=== PATIENT | male | born 1995 | race Caucasian/White ===

== ENCOUNTER 2023-09-08 22:08 | Emergency (ER) | payer OTHER ==
--- NOTE | 2023-09-08 22:15 | ED ---
Overdose HPI <Amara Crouch - Last Filed: 09/09/23 01:11> <Jaime Buckley - Last Filed: 09/09/23 06:36> - General Stated Complaint: OVERDOSE Time Seen by Provider: 09/08/23 22:15 - History of Present Illness Initial Comments: 28-year-old male brought to the ER by ambulance. Patient was in police custody he was found to have methamphetamine in his possession he did report he uses methamphetamine and cocaine. Patient was being transported from [facility] for incarceration when he began saying he could not breathe and his chest hurt. Patient was hyperventilating he was found to be tachycardic and was brought to the ER. On arrival patient is tachycardic and agitated will not answer questions. (Amara Crouch) - Related Data Allergies Allergy/AdvReac Type Severity Reaction Status Date / Time Unable to Assess Allergy Verified 09/08/23 22:24 Review of Systems ROS Other: All systems not noted in ROS Statement are negative. <Amara Crouch - Last Filed: 09/09/23 01:11> ROS Other: All systems not noted in ROS Statement are negative. <Jaime Buckley - Last Filed: 09/09/23 06:36> ROS Statement: Those systems with pertinent positive or pertinent negative responses have been documented in the HPI. General Exam Limitations: altered mental status General appearance: alert Head exam: Present: atraumatic Eye exam: Present: PERRL (Pupils 3 mm reactive) ENT exam: Present: mucous membranes dry Neck exam: Present: normal inspection Respiratory exam: Present: other (Tachypnea) Cardiovascular Exam: Present: tachycardia GI/Abdominal exam: Present: soft Rectal exam: Present: deferred Neurological exam: Present: alert, other (Follows commands, moving all extremities does not answer any verbal questions) Psychiatric exam: Present: anxious Skin exam: Present: warm, dry <Amara Crouch - Last Filed: 09/09/23 01:11> Course Vital Signs 09/08/23 09/08/23 09/08/23 22:17 22:20 22:35 Temperature Pulse Rate 140 H Respiratory 42 H 57 H Rate Blood Pressure 145/114 O2 Sat by Pulse 100 Oximetry 0209/08/23 09/09/23 22:54 23:33 00:10 Temperature 98.3 F Pulse Rate 99 87 86 Respiratory 15 15 15 Rate Blood Pressure 128/83 112/92 126/88 O2 Sat by Pulse 100 100 100 Oximetry 09/09/23 09/09/23 09/09/23 00:40 01:10 02:10 Temperature Pulse Rate 92 96 98 Respiratory 16 15 17 Rate Blood Pressure 123/85 129/88 137/98 O2 Sat by Pulse 100 100 100 Oximetry 09/09/23 09/09/23 09/09/23 03:10 05:00 06:00 Temperature Pulse Rate 102 H 98 98 Respiratory 17 16 14 Rate Blood Pressure 152/99 133/95 133/95 O2 Sat by Pulse 100 98 98 Oximetry Medical Decision Making - Lab Data Result diagrams: 09/08/23 22:25 09/08/23 22:25 <Amara Crouch P - Last Filed: 09/09/23 01:11> - Lab Data Result diagrams: 09/08/23 22:25 09/08/23 22:25 <Jaime Buckley D - Last Filed: 09/09/23 06:36> - Medical Decision Making Was pt. sent in by a medical professional or institution (, PA, SQUEEZER OPERATOR, urgent care, hospital, or senior living...) When possible be specific @ -[No] Did you speak to anyone other than the patient for history (EMS, parent, family, police, friend...)? What history was obtained from this source @ -Police, EMS Did you review nursing and triage notes (agree or disagree)? Why? @ -[I reviewed and agree with nursing and triage notes] Were old charts reviewed (outside hosp., previous admission, EMS record, old EKG, old radiological studies, urgent care reports/EKG's, senior living records)? Report findings @ -No old charts available Differential Diagnosis (chest pain, altered mental status, abdominal pain women, abdominal pain men, vaginal bleeding, weakness, fever, dyspnea, syncope, headache, dizziness, GI bleed, back pain, seizure, CVA, palpatations, mental health)? @ -Differential Altered Mental Status: Hypoglycemia, DKA, hypercapnia, ETOH, overdose, CO poisoning, trauma, myxedema coma, HTN encephalopathy, infection, encephalitis, psychosis, intercranial hemorrhage, hepatic encephalopathy, meningitis, CVA, this is not meant to be an all-inclusive list EKG interpreted by me (3pts min.). @ -[As above] X-rays interpreted by me (1pt min.). @ -[None done] CT interpreted by me (1pt min.). @ -[None done] U/S interpreted by me (1pt. min.). @ -[None done] What testing was considered but not performed or refused? (CT, X-rays, U/S, labs)? Why? @ -[None] What meds were considered but not given or refused? Why? @ -[None] Did you discuss the management of the patient with other professionals (professionals i.e. , PA, SQUEEZER OPERATOR, lab, RT, psych nurse, family welfare social work professor, expansion joint builder, teacher, motor equipment commanding officer, major case detective)? Give summary @ -[No] Was smoking cessation discussed for >3mins.? @ -[No] Was critical care preformed (if so, how long)? @ -[No] Were there social determinants of health that impacted care today? How? (Homelessness, low income, unemployed, alcoholism, drug addiction, transportation, low edu. Level, literacy, decrease access to med. care, usp, rehab)? @ -Drug addiction Was there de-escalation of care discussed even if they declined (Discuss DNR or withdrawal of care, Hospice)? DNR status @ -[No] What co-morbidities impacted this encounter? (DM, HTN, Smoking, COPD, CAD, Cancer, CVA, ARF, Chemo, Hep., AIDS, mental health diagnosis, sleep apnea, morbid obesity)? @ -[None] Was patient admitted / discharged? Hospital course, mention meds given and route, prescriptions, significant lab abnormalities, going to OR and other pertinent info. @ -The patient was seen and evaluated, history was obtained from police and EMS. Patient was found to be in possession of methamphetamine admitted to using methamphetamine and cocaine in the past. Patient was initially cooperative but became acutely agitated tachypneic tachycardic flailing around not answering questions. Patient was brought to the ER for evaluation. On arrival patient is tachypneic tachycardic and flailing around. IV access was obtained patient was given 2 mg of IV Ativan. Patient's condition did not improve and he was given an additional 2 mg of IV Ativan. Breathing exercise were discussed with the patient he was able to slow his breathing. Patient then fell asleep, tachycardia resolved. Patient is now resting, he awakes to gentle physical stimulation. He will remain in the ER until mentation improves. Patient was released from police custody however if he remains in the ER they will return at 5 AM to interview him. Patient care was signed out to Dr. Buckley at shift change, plan for patient to be discharged when awake and sober. (Amara Crouch) Patient care signed out to me by previous shift physician, Dr. Crouch at 1 AM. Briefly, patient is a 28-year-old male brought to the emergency department for methamphetamine use. He was treated with benzodiazepines. Patient and stable medical condition obviously he is chemically sedated with benzodiazepines. Plan at signout is to reevaluate patient at approximately 5 AM where he is to be re evaluated by law enforcement. Patient evaluated at 6:36 AM found to be in stable condition. He is awake alert oriented. States he did some drugs. Patient has no complaints at the bedside feels currently at baseline. Patient tolerating oral intake at the bedside. Patient be discharged. (Jaime Buckley) - Lab Data Lab Results 09/08/23 09/08/23 09/08/23 Range/Units 22:22 22:25 22:25 WBC 7.2 (3.8-10.6) k/uL RBC 5.19 (4.30-5.90) m/uL Hgb 15.0 (13.0-17.5) gm/dL Hct 45.8 (39.0-53.0) % MCV 88.1 (80.0-100.0) fL MCH 28.9 (25.0-35.0) pg MCHC 32.8 (31.0-37.0) g/dL RDW 15.9 H (11.5-15.5) % Plt Count 426 (150-450) k/uL MPV 7.2 Neutrophils % 65 % Lymphocytes % 20 % Monocytes % 5 % Eosinophils % 6 % Basophils % 0 % Neutrophils # 4.7 (1.3-7.7) k/uL Lymphocytes # 1.5 (1.0-4.8) k/uL Monocytes # 0.4 (0-1.0) k/uL Eosinophils # 0.5 (0-0.7) k/uL Basophils # 0.0 (0-0.2) k/uL Sodium 140 (137-145) mmol/L Potassium 4.2 (3.5-5.1) mmol/L Chloride 107 (98-107) mmol/L Carbon Dioxide 18 L (22-30) mmol/L Anion Gap 15 mmol/L BUN 11 (9-20) mg/dL Creatinine 0.77 (0.66-1.25) mg/dL Est GFR (CKD-EPI)AfAm >90 (>60 ml/min/1.73 sqM) Est GFR (CKD-EPI)NonAf >90 (>60 ml/min/1.73 sqM) Glucose 96 (74-99) mg/dL POC Glucose (mg/dL) 93 (70-110) mg/dL POC Glu Online Community Manager ID Amadou Meehan Calcium 9.9 (8.4-10.2) mg/dL Total Bilirubin 0.6 (0.2-1.3) mg/dL AST 32 (17-59) U/L ALT 26 (4-49) U/L Alkaline Phosphatase 114 (38-126) U/L Total Protein 7.5 (6.3-8.2) g/dL Albumin 5.1 H (3.5-5.0) g/dL Salicylates <1.0 mg/dL Urine Opiates Screen (NotDetected) Ur Oxycodone Screen (NotDetected) Urine Methadone Screen (NotDetected) Acetaminophen <10.0 ug/mL Ur Barbiturates Screen (NotDetected) U Tricyclic Antidepress (NotDetected) Ur Phencyclidine Scrn (NotDetected) Ur Amphetamines Screen (NotDetected) U Methamphetamines Scrn (NotDetected) U Benzodiazepines Scrn (NotDetected) Urine Cocaine Screen (NotDetected) U Marijuana (THC) Screen (NotDetected) Serum Alcohol <10 mg/dL 09/08/23 Range/Units 23:48 WBC (3.8-10.6) k/uL RBC (4.30-5.90) m/uL Hgb (13.0-17.5) gm/dL Hct (39.0-53.0) % MCV (80.0-100.0) fL MCH (25.0-35.0) pg MCHC (31.0-37.0) g/dL RDW (11.5-15.5) % Plt Count (150-450) k/uL MPV Neutrophils % % Lymphocytes % % Monocytes % % Eosinophils % % Basophils % % Neutrophils # (1.3-7.7) k/uL Lymphocytes # (1.0-4.8) k/uL Monocytes # (0-1.0) k/uL Eosinophils # (0-0.7) k/uL Basophils # (0-0.2) k/uL Sodium (137-145) mmol/L Potassium (3.5-5.1) mmol/L Chloride (98-107) mmol/L Carbon Dioxide (22-30) mmol/L Anion Gap mmol/L BUN (9-20) mg/dL Creatinine (0.66-1.25) mg/dL Est GFR (CKD-EPI)AfAm (>60 ml/min/1.73 sqM) Est GFR (CKD-EPI)NonAf (>60 ml/min/1.73 sqM) Glucose (74-99) mg/dL POC Glucose (mg/dL) (70-110) mg/dL POC Glu Online Community Manager ID Calcium (8.4-10.2) mg/dL Total Bilirubin (0.2-1.3) mg/dL AST (17-59) U/L ALT (4-49) U/L Alkaline Phosphatase (38-126) U/L Total Protein (6.3-8.2) g/dL Albumin (3.5-5.0) g/dL Salicylates mg/dL Urine Opiates Screen Not Detected (NotDetected) Ur Oxycodone Screen Not Detected (NotDetected) Urine Methadone Screen Not Detected (NotDetected) Acetaminophen ug/mL Ur Barbiturates Screen Not Detected (NotDetected) U Tricyclic Antidepress Not Detected (NotDetected) Ur Phencyclidine Scrn Not Detected (NotDetected) Ur Amphetamines Screen Detected H (NotDetected) U Methamphetamines Scrn Detected H (NotDetected) U Benzodiazepines Scrn Detected H (NotDetected) Urine Cocaine Screen Detected H (NotDetected) U Marijuana (THC) Screen Detected H (NotDetected) Serum Alcohol mg/dL Disposition Is patient prescribed a controlled substance at d/c from ED?: No <Amara Crouch P - Last Filed: 09/09/23 01:11> Is patient prescribed a controlled substance at d/c from ED?: No Time of Disposition: 06:36 <Jaime Buckley - Last Filed: 09/09/23 06:36> Clinical Impression: Substance abuse, Methamphetamine intoxication Disposition: HOME SELF-CARE Condition: Stable Instructions (If sedation given, give patient instructions): Adult Overdose ( ED) Referrals: None,Stated [Primary Care Provider] - 1-2 days
[2023-09-08 22:23] LABS: Glucose,Whole Blood 93 mg/dL (70-110)
[2023-09-08] MEDS: LORazepam 2 MG/ML INJ IV STA ×2 (22:25→22:34)
[2023-09-08 22:36] LABS: Basophils % (A) 0 %; Eosinophils # (A) 0.5 k/uL (0-0.7); Eosinophils % (A) 6 %; HCT 45.8 % (39.0-53.0); Lymphocytes # (A) 1.5 k/uL (1.0-4.8); Lymphocytes % (A) 20 %; MCH 28.9 pg (25.0-35.0); MCHC 32.8 g/dL (31.0-37.0); MCV 88.1 fL (80.0-100.0); Mean Platelet Volume 7.2; Monocytes # (A) 0.4 k/uL (0-1.0); Monocytes % (A) 5 %; Neutrophils # (A) 4.7 k/uL (1.3-7.7); Neutrophils % (A) 65 %; Platelet Count 426 k/uL (150-450); RBC 5.19 m/uL (4.30-5.90); RDW 15.9 % (11.5-15.5); WBC 7.2 k/uL (3.8-10.6)
[2023-09-08 22:46] LABS: ALT 26 U/L (4-49); AST 32 U/L (17-59); Acetaminophen <10.0 ug/mL; African American GFR (CKD) >90 (>60 ml/min/1.73 sqM); Albumin 5.1 g/dL (3.5-5.0); Alcohol <10 mg/dL; Alkaline Phosphatase 114 U/L (38-126); Anion Gap 15 mmol/L; Blood Urea Nitrogen 11 mg/dL (9-20); Calcium 9.9 mg/dL (8.4-10.2); Carbon Dioxide 18 mmol/L (22-30); Chloride 107 mmol/L (98-107); Glucose 96 mg/dL (74-99); Non-African American GFR(CKD) >90 (>60 ml/min/1.73 sqM); Potassium 4.2 mmol/L (3.5-5.1); Salicylate <1.0 mg/dL; Sodium 140 mmol/L (137-145); Total Bilirubin 0.6 mg/dL (0.2-1.3); Total Protein 7.5 g/dL (6.3-8.2)
--- NOTE | 2023-09-08 23:42 | XR ---
EXAM: XR Abdomen, 1 View CLINICAL HISTORY: ITS.REASON XR Reason: foreign body ingestion may have eaten bag of meth TECHNIQUE: Frontal supine view of the abdomen/pelvis. COMPARISON: No relevant prior studies available. FINDINGS: Gastrointestinal tract: Unremarkable. No dilation. Bones/joints: No acute fracture. No dislocation. IMPRESSION: Nonobstructive bowel. No radiopaque foreign body.
[2023-09-08 23:51] VITALS: TEMP 98.3
[2023-09-09 00:18] LABS: Amphetamine Screen,Urine Detected (NotDetected); Barbiturate Screen,Urine Not Detected (NotDetected); Cocaine Screen,Urine Detected (NotDetected); Methadone Screen, Urine Not Detected (NotDetected); Opiate Screen,Urine Not Detected (NotDetected); Oxycodone Screen, Urine Not Detected (NotDetected); Phencyclidine Screen,Urine Not Detected (NotDetected); Tricyclic Antidepressant,Urine Not Detected (NotDetected); Urn Cannabinoid Scrn Detected (NotDetected)
[2023-09-09 00:19] LABS: Benzodiazepines Screen,Urine Detected (NotDetected)
[2023-09-09 05:58] VITALS: BP 133/95; PULSE 98
[2023-09-09 06:27] VITALS: RESP 14
== END 2023-09-09 06:42 | disposition home or self-care (01) ==
LOC: EC 22:08
DX: F15.129 Other stimulant abuse with intoxication, unspecified (principal); F19.10 Other psychoactive substance abuse, uncomplicated
CPT/HCPCS: 36415; 80053; 85025; 80306; 80143; 80179; 74018; 99285; 96374; G0480; J2060; 80320

== ENCOUNTER 2024-12-31 18:56 | Emergency (ER) | payer OTHER ==
[2024-12-31] MEDS: SODIUM CHLORIDE 0.9% 1,000 ML IV ONE (19:04)
[2024-12-31] MEDS: LORazepam 1 MG/0.5 ML VIAL IV STA (19:04)
--- NOTE | 2024-12-31 19:11 | ED ---
General Adult HPI - General Source: patient, RN notes reviewed, old records reviewed <Hakeem Capone - Last Filed: 12/31/24 20:50> <Siva Galeas - Last Filed: 12/31/24 23:45> - General Stated complaint: overdose Time Seen by Provider: 12/31/24 18:56 - History of Present Illness Initial comments: This is a 29-year-old male who presents to the emergency department according to EMS the police pulled him over and he ingested a bunch of what they believed to be methamphetamine. Patient is getting no history he is just writhing around and hyperventilating and we have no further history at this time as to what he was on prior to the police pulling him over or exactly what were the meds that he ingested. No other history is available at this time (Hakeem Capone) - Related Data Allergies Allergy/AdvReac Type Severity Reaction Status Date / Time ketorolac [From Toradol] Allergy Rash/Hives Verified 12/31/24 19:13 Review of Systems ROS Other: All systems not noted in ROS Statement are negative. <Hakeem Capone - Last Filed: 12/31/24 20:50> ROS Other: All systems not noted in ROS Statement are negative. <Siva Galeas - Last Filed: 12/31/24 23:45> ROS Statement: Those systems with pertinent positive or pertinent negative responses have been documented in the HPI. Past Medical History Past Medical History: Unable to Obtain History of Any Multi-Drug Resistant Organisms: Unobtainable Past Surgical History: Unable to Obtain Past Psychological History: Unable to Obtain Past Alcohol Use History: Unable to Obtain Past Drug Use History: Unable to Obtain <Hakeem Capone - Last Filed: 12/31/24 20:50> General Exam <Hakeem Capone - Last Filed: 12/31/24 20:50> - General Exam Comments Initial Comments: GENERAL: Patient is well-developed and well-nourished. Patient is nontoxic and well- hydrated and is in moderate distress. ENT: Neck is soft and supple. No significant lymphadenopathy is noted. Oropharynx is clear. Moist mucous membranes. Neck has full range of motion without eliciting any pain. EYES: The sclera were anicteric and conjunctiva were pink and moist. Extraocular movements were intact and pupils were equal round and reactive to light. Eyelids were unremarkable. PULMONARY: Unlabored respirations. Good breath sounds bilaterally. No audible rales rhonchi or wheezing was noted. CARDIOVASCULAR: Patient is tachycardic ABDOMEN: Soft and nontender with normal bowel sounds. SKIN: Skin is clear with no lesions or rashes and otherwise unremarkable. NEUROLOGIC: Patient is alert but not answering any questions. MUSCULOSKELETAL: Normal extremities with adequate strength and full range of motion. LYMPHATICS: No significant lymphadenopathy is noted PSYCHIATRIC: Patient is uncooperative (Hakeem Capone) Course Vital Signs 12/31/24 12/31/24 12/31/24 19:07 19:13 19:27 Temperature 99 F Pulse Rate 130 H 106 H Pulse Rate [ 104 H Pss Delivery Professional ] Respiratory 56 H 20 Rate Blood Pressure 123/71 118/76 O2 Sat by Pulse 93 L 96 Oximetry 12/31/24 12/31/24 12/31/24 20:30 21:00 22:00 Temperature Pulse Rate 92 91 98 Pulse Rate [ Pss Delivery Professional ] Respiratory 14 18 18 Rate Blood Pressure 107/59 103/63 111/81 O2 Sat by Pulse 95 97 98 Oximetry 12/31/24 23:00 Temperature Pulse Rate 68 Pulse Rate [ Pss Delivery Professional ] Respiratory 18 Rate Blood Pressure 113/71 O2 Sat by Pulse 97 Oximetry Medical Decision Making - Lab Data Result diagrams: 12/31/24 19:02 12/31/24 19:02 <Hakeem Capone - Last Filed: 12/31/24 20:50> - Lab Data Result diagrams: 12/31/24 19:02 12/31/24 19:02 <Siva Galeas - Last Filed: 12/31/24 23:45> - Medical Decision Making EKG is interpreted by myself but EKG shows sinus tachycardia 115 bpm TX interval 119 QRS of 92 QT interval 310 QTc is 378. Patient's EKG shows no ST segment elevation or depression. Was pt. sent in by a medical professional or institution (, VEENA, ROLLER LEVELER OPERATOR, urgent care, hospital, or snf...) When possible be specific @ -[No] Did you speak to anyone other than the patient for history (EMS, parent, family, police, friend...)? What history was obtained from this source @ -[No] Did you review nursing and triage notes (agree or disagree)? Why? @ -[I reviewed and agree with nursing and triage notes] Were old charts reviewed (outside hosp., previous admission, EMS record, old EKG, old radiological studies, urgent care reports/EKG's, snf records)? Report findings @ -[No old charts were reviewed] Differential Diagnosis? @ -Differential Altered Mental Status: Hypoglycemia, DKA, hypercapnia, ETOH, overdose, CO poisoning, trauma, myxedema coma, HTN encephalopathy, infection, encephalitis, psychosis, intercranial hemorrhage, hepatic encephalopathy, meningitis, CVA, this is not meant to be an all-inclusive list EKG interpreted by me (3pts min.). @ -[As above] X-rays interpreted by me (1pt min.). @ -[None done] CT interpreted by me (1pt min.). @ -[None done] U/S interpreted by me (1pt. min.). @ -[None done] What testing was considered but not performed or refused? (CT, X-rays, U/S, labs)? Why? @ -[None] What meds were considered but not given or refused? Why? @ -[None] Did you discuss the management of the patient with other professionals (professionals i.e. , PA, ROLLER LEVELER OPERATOR, lab, RT, psych nurse, social contact worker, belt knife feeder, teacher, commercial escrow officer, pillowcase cutter)? Give summary @ -[No] Was smoking cessation discussed for >3mins.? @ -[No] Was critical care preformed (if so, how long)? @ -[No] Were there social determinants of health that impacted care today? How? (Homelessness, low income, unemployed, alcoholism, drug addiction, transportation, low edu. Level, literacy, decrease access to med. care, halfway, rehab)? @ -[No] Was there de-escalation of care discussed even if they declined (Discuss DNR or withdrawal of care, Hospice)? DNR status @ -[No] What co-morbidities impacted this encounter? (DM, HTN, Smoking, COPD, CAD, Cancer, CVA, ARF, Chemo, Hep., AIDS, mental health diagnosis, sleep apnea, morbid obesity)? @ -[None] Was patient admitted / discharged? Hospital course, mention meds given and route, prescriptions, significant lab abnormalities, going to OR and other pertinent info. @ -Patient came to the hospital extremely agitated and not answering any questions. Patient was tachycardic and very tense and stiff and would not relax. And at times patient was holding his breath. Patient was given 2 of Ativan at which point in time he slowly relaxed and has been sleeping ever since . Dr. Lua will take over the care of this patient at 9 PM (Hakeem Capone) Patient care was signed out at shift change at 9 PM. Patient was observed for 3 additional hours. He was able to wake up he was alert, able to eat and drink in the emergency department. Vitals remained stable. Patient was stable for discharge with police. (Siva Galeas) - Lab Data Lab Results 12/31/24 12/31/24 12/31/24 Range/Units 19:02 19:02 19:21 WBC 7.33 (4.50-10.00) 10*3/uL RBC 5.06 (4.40-5.60) 10*6/uL Hgb 16.1 (13.0-17.0) g/dL Hct 46.6 (39.6-50.0) % MCV 92.1 (80.0-97.0) fL MCH 31.8 (27.0-32.0) pg MCHC 34.5 (32.0-37.0) g/dL Plt Count 380 (140-440) 10*3/uL MPV 8.9 L (9.5-12.2) fL Immature Gran % (Auto) 0.3 % Neutrophils % 47.3 % Lymphocytes % 29.3 % Monocytes % 7.8 % Eosinophils % 14.5 % Basophils % 0.8 % Immature Gran # 0.02 (0.00-0.04) 10*3/uL Neutrophils # 3.47 (1.80-7.70) 10*3/uL Lymphocytes # 2.15 (0.90-5.00) 10*3/uL Monocytes # 0.57 (0.20-1.00) 10*3/uL Eosinophils # 1.06 H (0.04-0.35) 10*3/uL Basophils # 0.06 (0.00-0.10) 10*3/uL Sodium 140 (137-145) mmol/L Potassium 4.3 (3.5-5.1) mmol/L Chloride 107 (98-107) mmol/L Carbon Dioxide 20 L (22-30) mmol/L Anion Gap 13 mmol/L BUN 19 (9-20) mg/dL Creatinine 1.04 (0.66-1.25) mg/dL Est GFR (CKD-EPI)AfAm >90 (>60 ml/min/1.73 sqM) Est GFR (CKD-EPI)NonAf >90 (>60 ml/min/1.73 sqM) Glucose 104 H (74-99) mg/dL Calcium 9.7 (8.4-10.2) mg/dL Total Bilirubin 0.4 (0.2-1.3) mg/dL AST 26 (17-59) U/L ALT 19 (4-49) U/L Alkaline Phosphatase 98 (38-126) U/L Creatine Kinase 179 H (55-170) U/L Total Protein 7.0 (6.3-8.2) g/dL Albumin 4.8 (3.5-5.0) g/dL Urine Opiates Screen Not Detected (NotDetected) Ur Oxycodone Screen Detected H (NotDetected) Urine Methadone Screen Not Detected (NotDetected) Ur Barbiturates Screen Not Detected (NotDetected) U Tricyclic Antidepress Not Detected (NotDetected) Ur Phencyclidine Scrn Not Detected (NotDetected) Ur Amphetamines Screen Not Detected (NotDetected) U Methamphetamines Scrn Detected H (NotDetected) U Benzodiazepines Scrn Not Detected (NotDetected) Urine Cocaine Screen Not Detected (NotDetected) U Marijuana (THC) Screen Detected H (NotDetected) Serum Alcohol <10 mg/dL Disposition <Hakeem Capone - Last Filed: 12/31/24 20:50> Is patient prescribed a controlled substance at d/c from ED?: No Time of Disposition: 00:10 <Siva Galeas - Last Filed: 12/31/24 23:45> Clinical Impression: Overdose of methamphetamine Disposition: HOME SELF-CARE Condition: Fair Instructions (If sedation given, give patient instructions): Adult Overdose (ED) Referrals: Hakeem Capone MD [Primary Care Provider] - 1-2 days
[2024-12-31 19:28] LABS: Basophils # (A) 0.06 10*3/uL (0.00-0.10); Basophils % (A) 0.8 %; Eosinophils # (A) 1.06 10*3/uL (0.04-0.35); Eosinophils % (A) 14.5 %; HCT 46.6 % (39.6-50.0); HGB 16.1 g/dL (13.0-17.0); Lymphocytes # (A) 2.15 10*3/uL (0.90-5.00); Lymphocytes % (A) 29.3 %; MCH 31.8 pg (27.0-32.0); MCHC 34.5 g/dL (32.0-37.0); MCV 92.1 fL (80.0-97.0); Mean Platelet Volume 8.9 fL (9.5-12.2); Monocytes # (A) 0.57 10*3/uL (0.20-1.00); Monocytes % (A) 7.8 %; Neutrophils # (A) 3.47 10*3/uL (1.80-7.70); Neutrophils % (A) 47.3 %; Platelet Count 380 10*3/uL (140-440); RBC 5.06 10*6/uL (4.40-5.60); RDW 12.1 % (11.5-14.5); WBC 7.33 10*3/uL (4.50-10.00)
[2024-12-31 19:42] LABS: Amphetamine Screen,Urine Not Detected (NotDetected); Barbiturate Screen,Urine Not Detected (NotDetected); Benzodiazepines Screen,Urine Not Detected (NotDetected); Cocaine Screen,Urine Not Detected (NotDetected); Methadone Screen, Urine Not Detected (NotDetected); Opiate Screen,Urine Not Detected (NotDetected); Oxycodone Screen, Urine Detected (NotDetected); Phencyclidine Screen,Urine Not Detected (NotDetected); Tricyclic Antidepressant,Urine Not Detected (NotDetected); Urn Cannabinoid Scrn Detected (NotDetected)
[2024-12-31 19:53] LABS: ALT 19 U/L (4-49); AST 26 U/L (17-59); African American GFR (CKD) >90 (>60 ml/min/1.73 sqM); Albumin 4.8 g/dL (3.5-5.0); Alcohol <10 mg/dL; Alkaline Phosphatase 98 U/L (38-126); Anion Gap 13 mmol/L; Blood Urea Nitrogen 19 mg/dL (9-20); Calcium 9.7 mg/dL (8.4-10.2); Carbon Dioxide 20 mmol/L (22-30); Chloride 107 mmol/L (98-107); Creatine Kinase 179 U/L (55-170); Glucose 104 mg/dL (74-99); Non-African American GFR(CKD) >90 (>60 ml/min/1.73 sqM); Potassium 4.3 mmol/L (3.5-5.1); Sodium 140 mmol/L (137-145); Total Bilirubin 0.4 mg/dL (0.2-1.3)
[2024-12-31] MEDS: NALOXONE 0.4 MG/ML 1 ML VIAL IVP STA (23:48)
[2025-01-01 00:26] VITALS: BP 127/96; PULSE 102; RESP 18; TEMP 98.9
== END 2025-01-01 00:24 | disposition home or self-care (01) ==
LOC: EC 18:56
DX: T43.651A Poisoning by methamphetamines accidental (unintentional), initial encounter (principal); Z88.6 Allergy status to analgesic agent
CPT/HCPCS: 36415; 93005; 80053; 82550; 85025; 80306; 99284; 96374; 96375; 96361; G0480; J2060; J2310; 80320